=== PATIENT | female | born 1995 | race African-American/Black ===

== ENCOUNTER 2019-09-11 11:18 | Emergency (ER) | payer OTHER ==
[~2019-09-11] VITALS: Ht 165.1 cm; Wt 99.8 kg
[2019-09-11 11:36] VITALS: BP 140/87
[2019-09-11] MEDS ORDERED: NOHOMEMEDICATIONS (11:56)
== END 2019-09-11 11:59 | disposition home or self-care (01) ==
LOC: ER 11:18
DX: R05 Cough (principal); Z03.818 Encounter for observation for suspected exposure to other biological agents ruled out